=== PATIENT | female | born 1960 | race Caucasian/White ===

== ENCOUNTER 2021-06-05 09:48 | Day surgery (SDC) | payer SELFPAY ==
[~2021-06-05] VITALS: Ht 160 cm; Wt 48.1 kg
[2021-06-05] MEDS ORDERED: DULCOLAX TAB5 MG PO (10:40)
[2021-06-05] MEDS ORDERED: SYNTHROID0.05 MG/TA PO (10:41)
[2021-06-05] MEDS ORDERED: DESYREL 50MG50 MG PO (10:42)
[2021-06-05] MEDS ORDERED: ZOFRAN ODT4 MG PO (10:42)
[2021-06-05] MEDS ORDERED: LIPITOR20 MG PO (10:43)
[2021-06-05] MEDS ORDERED: MOTRIN 200200 MG/TAB PO (10:43)
[2021-06-05] MEDS ORDERED: CARAFATE 1GM1 G PO (10:43)
[2021-06-05] MEDS ORDERED: DICLOFENAC SOD2.5 ML TOP (10:44)
[2021-06-05 12:05] VITALS: BP 98/78; PULSE 88; TEMP 98.1
--- NOTE | 2021-06-05 12:05 | NUR ---
PATIENT TRANSPORTED PER CART FROM GI SUITE TO [place] 8 ACCOMPANIED BY ENDO RN. PATIENT AMBULATED FROM CART TO CHAIR WITH SLOW STEADY GAIT. MONITORS APPLIED. VSS ON ROOM AIR. PATIENT TALKS WITH STAFF. VERBAL REPORT RECEIVED. PATIENT GIVEN FOOD AND DRINK.
[2021-06-05 12:15] VITALS: BP 138/73; PULSE 79
--- NOTE | 2021-06-05 12:20 | NUR ---
VSS ON ROOM AIR. PATIENT TALKS WITH STAFF. DENIES DISCOMFORT AND NAUSEA. DR HINTON SPEAKS WITH PATIENT.
[2021-06-05 12:30] VITALS: BP 100/71; PULSE 75
--- NOTE | 2021-06-05 12:35 | NUR ---
VSS ON ROOM AIR. PATIENT DENIES PROBLEMS. IV SITE DC'D WITH CATHETER TIP INTACT. PRESSURE AND BANDAGE APPLIED. DISCHARGE INSTRUCTIONS GIVEN VERBAL AND DISCHARGE PACKET GIVEN TO PATIENT. QUESTIONS ANSWERED AND PATIENT VOICED UNDERSTANDING. PATIENT CHANGES INTO STREET [place]OTHES. [id number] PATIENT DISMISSED PER WHEEL CHAIR ACCOMPANIED BY AMB RN TO PRIVATE VECHILE DRIVEN BY CINDY.
== END 2021-06-05 12:45 | disposition home or self-care (01) ==
LOC: SDCO 09:48 → EDSEX 11:00 → SDCO 11:00
DX: Z12.11 Encounter for screening for malignant neoplasm of colon (principal); K21.00 Gastro-esophageal reflux disease with esophagitis, without bleeding; K57.30 Diverticulosis of large intestine without perforation or abscess without bleeding; R63.4 Abnormal weight loss; R68.81 Early satiety; J44.9 Chronic obstructive pulmonary disease, unspecified; K21.9 Gastro-esophageal reflux disease without esophagitis; G89.29 Other chronic pain; M54.9 Dorsalgia, unspecified; E03.9 Hypothyroidism, unspecified; E78.5 Hyperlipidemia, unspecified; F50.89 Other specified eating disorder; F17.210 Nicotine dependence, cigarettes, uncomplicated; F32.9 Major depressive disorder, single episode, unspecified; Z20.822 Contact with and (suspected) exposure to COVID-19; Z79.890 Hormone replacement therapy; Z79.891 Long term (current) use of opiate analgesic; Z79.899 Other long term (current) drug therapy; Z90.89 Acquired absence of other organs; Z80.42 Family history of malignant neoplasm of prostate
CPT/HCPCS: J2704; J7030